=== PATIENT | male | born 1985 | race Two or more races ===

== ENCOUNTER 2017-08-28 03:32 | Emergency (ER) | payer SELFPAY ==
[~2017-08-28] VITALS: Ht 177.8 cm; Wt 82.0 kg
[2017-08-28] MEDS ORDERED: PIPERACILLIN/TAZO/PMX 3.375GM 50 ML IVPB ONE (04:30)
[2017-08-28] MEDS ORDERED: HYDROmorphone 1 MG/ML, 1ML IVPush PRN (04:30)
[2017-08-28 07:45] VITALS: BP 126/67
== END 2017-08-28 09:10 | disposition home or self-care (01) ==
LOC: ED 09:00
DX: F10.220 Alcohol dependence with intoxication, uncomplicated (principal); Z79.899 Other long term (current) drug therapy
CPT/HCPCS: 36415; 80307; 99283